=== PATIENT | female | born 1940 ===

== ENCOUNTER 2025-08-31 15:32 | Outpatient (AMB) | payer MEDICARE, SELFPAY ==
--- NOTE | 2025-08-31 15:26 | MHC.PC.OV ---
Vital Signs 08/31/25 15:35 08/31/25 17:01 Height 5 ft 3.39 in Weight 152 lb 4 oz BMI 26.6 BP 144/68 H 135/75 Blood Pressure Location Rt brachial Position Sitting Respiration 16 Pulse 79 Pulse Source Pulse Oximeter Temp 98.1 F Temp Source Temporal Artery Scan Pulse Oximetry (%) 99 Oxygen Delivery Method Room Air Intake Visit Reasons: Establish Care Orthopedic Physical Therapist Required: No Accompanied by: Self / Same As Patient Allergies No Known Allergies Allergy (Verified 08/31/25 15:55) Medication List - Last Reconciled 08/31/25 by Josselin Miller PA-C multivitamin 1 tab PO DAILY Tobacco use date assessed: 08/31/25 Fall risk assessment: No Falls in past year Dental Screening Dental Screen Date: 08/31/25 Did you have a dental visit in the last 12 months?: Yes Did you have a dental problem in the last 6 months where you did not have access to dental care?: No Was dental information given to patient?: Patient has dentist HPI Establish Care HPI Details The patient is an 85-year-old female presenting for establishment of care. She reports a history of hypertension, with her blood pressure noted to be slightly elevated during the visit and with reassessment it came down after the patient was less anxious about meeting her new provider. The patient's [id number] who is at bedside has an autoimmune condition, which she manages by being cautious about exposure to illnesses. The patient has not had any recent blood work or screenings, as she has not been sick and has avoided medical visits. She denies any current health issues and has not undergone routine screenings such as mammograms or colonoscopies. The patient is active, maintaining a large house and yard, and does not take any medications except for a multivitamin. Preventative care discussions included the importance of checking white blood cell count and platelet count as markers for cancer screening. Vitamin D levels were discussed, noting that they are often low in [place], though the patient likely does not have a deficiency due to her outdoor activity and multivitamin use. Vitamin B12 was also discussed for its benefits in memory and energy, with the option to check levels if desired. The patient has a family history of cancer, with a sister who had an unspecified type of cancer, but no other family members affected. She has completed a healthcare proxy, listing her son and [id number] as decision-makers. Patient is a DNI DNR signed today. - Family Status: Lives with family, including a supportive [id number]. - Exercise: Actively maintains a large house and yard, indicating a high level of physical activity. - Functional Status: Independent in daily activities, does not consider herself a senior citizen. [facility] Medical History Annual physical exam Elevated blood pressure reading Preventative health care Family History Father No problems noted. Mother No problems noted. Social History Housing: House Patient Tobacco Use Status: Never used Tobacco service: No Current occupational status: retired Cognitive needs: No Hearing needs: No Vision needs: Yes (readers) Questionnaire PHQ-9 Over the last 2 weeks, how often have you been bothered by any of the following problems? 1. Little interest or pleasure in doing things: not at all 2. Feeling down, depressed, or hopeless: not at all 3. Trouble falling or staying asleep, or sleeping too much: not at all 4. Feeling tired or having little energy: not at all 5. Poor appetite or overeating: not at all 6. Feeling bad about yourself - or that you are a failure or have let yourself or your family down: not at all 7. Trouble concentrating on things, such as reading the newspaper or watching television: not at all 8. Moving or speaking so slowly that other people could have noticed. Or the opposite - being so fidgety or restless that you have been moving around a lot more than usual: not at all 9. Thoughts that you would be better off or of hurting yourself in some way: not at all Total score: 0 Depression Screening Interpretation: Negative Depression Screening Done: Yes 77473 - PHQ-9 Billing: Yes Source: Developed by Drs. Jorge Hand, Amie Reyes, Cecil Matute and colleagues, with an educational nolberto from [employer]. Thrive Questionnaire Date Thrive assessed: 08/31/25 I am a: Patient What is your living situation today?: I have a steady place to live Within the past 12 months, did the food you bought not last and you didn't have the money to get more?: Never true Within the past 12 months, did you worry whether your food would run out before you got money to buy more?: Never true Do you have trouble paying for medicines?: No Do you have trouble getting transportation to medical appointments?: No Do you have trouble paying your heating and electricity bill?: No Do you have trouble taking care of your child, family member or friend?: No Do you have trouble with day-to-day activities such as bathing, preparing meals, shopping, managing finances, etc.?: No Are you currently unemployed and looking for a job?: No Are you interested in more education?: No Please select the resources that you would like help with: None THRIVE Score: 0 AUDIT C Alcohol Use Questionnaire (AUDIT-C) 1. How often do you have a drink containing alcohol?: Never 3. How often do you have six or more drinks on one occasion?: Never Total Score: 0 Score Reviewed/Action Taken: No FEROZ-7 AMB Questionnaire FEROZ-7 Feeling nervous, anxious, or on edge: 0 = Not at all Not being able to stop or control worryin = Not at all Worrying too much about different things: 0 = Not at all Trouble relaxin = Not at all Being so restless that it is hard to sit still: 0 = Not at all Becoming easily annoyed or irritable: 0 = Not at all Feeling afraid as if something awful might happen: 0 = Not at all Total FEROZ-7 score (0-4 normal; 5-9 mild; 10-14 moderate; 15-21 severe): 0 Source: Developed by Drs. Jorge Hand, Amie Reyes, Cecil Matute and colleagues, with an educational nolberto from [employer]. FEROZ-7 Assessment Billing FEROZ-7 Assessment Tool: FEROZ-7 Assessment 82145 Review of Systems Const Details: - Cardiovascular: Denies chest pain, palpitations, or syncope. - Respiratory: Denies dyspnea, cough, or wheezing. - Gastrointestinal: Denies abdominal pain, changes in bowel habits, or blood in stool. - Genitourinary: Denies dysuria, hematuria, or flank pain. - Neurological: Denies dizziness or memory loss. - Musculoskeletal: Denies joint pain or swelling. All systems reviewed & are unremarkable except as noted in HPI and below Physical exam (Primary Care) Vital Signs: Last Vital Signs Temp 98.1 F 08/31/25 15:35 Pulse 79 08/31/25 15:35 Resp 16 08/31/25 15:35 BP 144/68 H 08/31/25 15:35 Pulse Ox 99 08/31/25 15:35 Oxygen Delivery Method Room Air 08/31/25 15:35 Care Plan Goal for BP management: <140/90 at Goal BMI result Body Mass Index 26.6 BMI Assessment/Plan discussion: High BMI High, discussed plan: lifestyle, weight reduction, dietary, physical activity, alcohol moderation and other Tobacco/Smoking Status: Tobacco use Status Tobacco use date assessed 08/31/25 08/31/25 15:30 Patient Tobacco Use Status Never used Tobacco 08/31/25 15:30 PHQ-9: PHQ-9 Score PHQ-9: Total score 0 08/31/25 15:56 Depression Screening Interpretation: Negative Thrive Assessment: Date of Thrive Assessment Date Thrive assessed 08/31/25 08/31/25 15:30 Const Other: Appearance: Alert. Oriented X3. No acute distress. Head: Normal external exam. Normocephalic. Atraumatic. Eyes: Pupils are equal, round, and reactive to light. Extraocular movements intact. Conjunctiva and sclera normal. Eyelids normal. Ears: External auditory canal normal. Tympanic membranes normal. Throat: Pharynx normal. Uvula midline. Moist mucous membranes. Neck: Normal inspection. Neck supple. Full range of motion. No adenopathy. Thyroid Normal. No meningeal signs. No neck mass noted. Cardiovascular: Normal heart rate and rhythm. Heart sound normal. No murmurs noted. Pulses normal throughout. Respiratory: No respiratory distress. Painless inspiration. Breath sounds normal. No wheezes/rales/rhonchi noted. Chest nontender. No accessory muscle usage noted or decreased air movement noted. Abdomen: Soft and nontender. Bowel sounds normal in all 4 quadrants. No distention noted. No organomegaly noted. No visible injury noted. Back: No costovertebral angle tenderness. Full range of motion noted. Skin: Skin warm and dry. Normal skin color. Normal skin turgor. No rashes/lesions/lacerations noted. Extremities: No lower extremity edema. Extremities exhibit normal range of motion. Extremities nontender. Neuro: Oriented X 3. No motor deficit. No sensory deficit. Reflexes normal. Coding Level of Care Code New Pt Level 4 (96927) New Pt Prev Care >65yr (23467) Diagnoses Annual physical exam Z00.00 Elevated blood pressure reading R03.0 Preventative health care Z00.00 Additional Codes FEROZ-7 Assessment Billing - FEROZ-7 Assessment Tool: FEROZ-7 Assessment 83195 ([id number]) PHQ-9 - 21648 - PHQ-9 Billing: Yes ([id number]) Time Spent (min) 50 Assessment & Plan Assessment & Plan (1) Annual physical exam: Code(s): Z00.00 - Encounter for general adult medical examination without abnormal findings Category: Medical (2) Elevated blood pressure reading: Code(s): R03.0 - Elevated blood-pressure reading, without diagnosis of hypertension Category: Medical Plan: The patient's blood pressure was noted to be slightly elevated during the visit. It was recommended to monitor her blood pressure at home to ensure it remains within a normal range. No immediate medication changes were discussed. (3) Preventative health care: Code(s): Z00.00 - Encounter for general adult medical examination without abnormal findings Category: Medical Plan: Preventative care measures discussed included cancer screening through blood tests to check white blood cell and platelet counts, as well as vitamin D and B12 level checks. The patient was advised to undergo these tests to ensure no deficiencies or underlying conditions. Additionally, a urine test was recommended to screen for bladder cancer. The patient was informed about the importance of these screenings and agreed to proceed with the tests. Plan Plan Patient was informed and verbally consented to the use of an ambient scribe for clinic note documentation during this visit. 1. Hypertension The patient's blood pressure was noted to be slightly elevated during the visit. It was recommended to monitor her blood pressure at home to ensure it remains within a normal range. No immediate medication changes were discussed. 2. Preventative Care Preventative care measures discussed included cancer screening through blood tests to check white blood cell and platelet counts, as well as vitamin D and B12 level checks. The patient was advised to undergo these tests to ensure no deficiencies or underlying conditions. Additionally, a urine test was recommended to screen for bladder cancer. The patient was informed about the importance of these screenings and agreed to proceed with the tests. During the visit, I discussed with the patient the importance of regular screenings and preventative care measures, including blood tests for cancer markers and vitamin levels. We also talked about the benefits of monitoring her blood pressure at home. The patient was informed about the use of a butterfly needle for blood draws to minimize discomfort. We reviewed her healthcare proxy and discussed her preferences for end-of-life care, ensuring her wishes were documented. Orders: Orders Complete Blood Count no Diff Today Z00.00 - Encounter for general adult medical examination without abnormal findings TSH reflex Free T4 Today Z00.00 - Encounter for general adult medical examination without abnormal findings Magnesium Today Z00.00 - Encounter for general adult medical examination without abnormal findings Vitamin D 25-OH Total Today Z00.00 - Encounter for general adult medical examination without abnormal findings Hemoglobin A1c Today Z00.00 - Encounter for general adult medical examination without abnormal findings UA CC w/rflx Micro + Cult Today Z00.00 - Encounter for general adult medical examination without abnormal findings Comprehensive [place]. Panel Fast Today Z00.00 - Encounter for general adult medical examination without abnormal findings Vitamin B12 and Folate Today Z00.00 - Encounter for general adult medical examination without abnormal findings Lipid Panel Today Z00.00 - Encounter for general adult medical examination without abnormal findings C Reactive Protein Today Z00.00 - Encounter for general adult medical examination without abnormal findings Patient Instructions: - Monitor blood pressure at home regularly and report any significant changes. - Schedule and complete recommended blood tests, including CBC, CMP, vitamin D, and B12 levels. - Undergo a urine test to screen for bladder cancer. - Follow up in one year for a wellness check or sooner if any health concerns arise.
[2025-08-31 15:35] VITALS: BP 144/68; PULSE 79; RESP 16; TEMP 36.7; O2SAT 99; BMI 26.6
[2025-08-31 17:01] VITALS: BP 135/75
== END 2025-08-31 16:31 | disposition home or self-care (01) ==
LOC: HO.HMCSH 15:32
PROVIDERS: Visit Provider Physician Assistant Medical
DX: Z00.00 Encounter for general adult medical examination without abnormal findings (principal); R03.0 Elevated blood-pressure reading, without diagnosis of hypertension

== ENCOUNTER → 2025-08-31 15:32 | Outpatient (BNVA) | payer MEDICARE, SELFPAY | PROVIDERS: Visit Provider Physician Assistant Medical | DX: Z00.00 Encounter for general adult medical examination without abnormal findings (principal); R03.0 Elevated blood-pressure reading, without diagnosis of hypertension; Z13.31 Encounter for screening for depression | CPT/HCPCS: 96127; 99387 ==